=== PATIENT | male | born 1975 | race Two or more races ===

== ENCOUNTER 2025-06-19 09:34 | Outpatient (AMB) | payer OTHER, SELFPAY ==
--- OUTSIDE RECORDS SUMMARY | 2016-08-28 06:08 | XMS_ITS | Continuity of Care Document ---
Author Organization [facility] Address [address] [place] [address] Phone Care Team Providers Care Drip Box Tender Name Role Phone Maritza BATRES, Anika Unavailable Unavailable Allergies, Adverse Reactions, Alerts Substance Reaction Status Criticality Penicillins Hives/Skin Rash Active No Informati on Medications Medication Instructions Dosage Effective Dates (start - stop) Status Comments ibuprofen 800 mg tablet take 1 tablet by oral route 3 times every day with food 800 MG - Active Procedures Procedure Date PREV VISIT, EST, AGE 40-64 Diagnostic Evaluation With No Medical Ja C33 UNLISTED E&M SERVICE SPECIMEN HANDLING ROUTINE VENIPUNCTURE HEMOGLOBIN ASSAY THYROID STIM HORMONE MICROSCOPIC EXAM OF URINE ASSAY OF FREE THYROXINE HEPATIC FUNCTION PANEL COMPLETE CBC, AUTOMATED LIPID PANEL BASIC METABOLIC PANEL HIV-1/HIV-2, SINGLE ASSAY Urine Dipstick OFFICE/OUTPATIENT VISIT, NEW 30 MIN IMMUNIZATION ADMIN TDAP Vaccine 7 Yrs Thru 18 Yrs And 11 Mo s IM B16 Advance Directives Directive Yes / No Effective Date File Name No Information Encounters Encounter Description Practice Location Reason(s) For Visit Diagnoses Date Provider Providers Copied on Encounter [facility], [address], [place], [id number], [place] tel:[phone] [facility] No Information 3-201 7 Maritza Donaldson. [address] [place], [address], [place]. tel:[phone] PREV VISIT, EST, AGE 40-64 [facility], [address] [place] [address], [id number], [place] tel:[phone] [facility] CPE (chief complaint) Encounter for well adult exam without abnormal findingsPPD screening testExcessive cerumen in both ear canalsBMI 37.0-37.9, adultElevated blood pressure reading 7 [facility] SUPERVISOR [employer]ANGING Anika. [address] [place], [address], [place]. tel:[phone] Diagnostic Evaluation With No Medical [facility], [address] [place] [address], [id number], [place] tel:[phone] [facility] Alcohol abuse with intoxication, unspecified 7 [facility] [place]. [address] [place], [address]. tel:[phone] UNLISTED E&M SERVICE [facility], [address] [place] [address], [id number], [place] tel:[phone] [facility] Lab Draw (chief complaint) Encounter for preprocedural laboratory examination 6 Nurse Visit. [address] [place], [address], [place]. tel:[phone] OFFICE/OUTPA TIENT VISIT, NEW 30 MIN [facility], [address] [place] [address], [id number], [place] tel:[phone] [facility] genitail pain (chief complaint) Encounter for preprocedural laboratory examinationEstablis ventura care with new doctor, encounter forRoutine lab drawBMI 37.0-37.9, adultMuscle spasmAlcohol dependence with uncomplicated intoxicationLeft groin painElevated blood pressure reading 6 [facility] [employer] Anika. [address] [place], [address], [place]. tel:[phone] Family History Family Member Type Diagnosis Age At Onset Paternal grandmother Problem (finding) Diabetes mellit Paternal grandmother Problem (finding) Cancer, brain ( Cause Of ) Immunizations Vaccine Date Status Comments Tdap administered Source: [facility] unization Record Payers Payer name Insurance type Covered alliance party ID Authoriza tion(s) No Information Social History Type Description Quantity Date Captured Comments Sex Male Smoking Status No Information Sexual Orientation Straight or heterosexual Gender Identity Male Chief Complaint And Reason For Visit No Information Reason For Referral Reason For Referral No Information Plan Of Treatment Date Type Action Status Goal TB Screening (PPD test). Due on due Goal Complete Physical Exam. Due on due Goal TB Screening (PPD test). Due on due Goal Complete Physical Exam. Due on due Goal Mammogram Screening. Due on due Goal TB Screening (PPD test). Due on due Goal Mammogram Screening. Due on due Goal Complete Physical Exam. Due on due Goal TB Screening (PPD test). Due on due Goal Mammogram Screening. Due on due Goal Td vaccine. Due on 16 due Goal Complete Physical Exam. Due on due Referral Ordered: referred to [facility] (related to Alcohol dependence with uncomplicated intoxication) ordered History Of Present Illness Encounter Date Complaint History Of Prese nt Illness CPE 41 y.o male here for CPE and discuss labs done 07/13/17. Pt states recently he has been counting his calories intake, and very conscious about his diet. Pt has been walking his dog more these days, but not in the rain.Pt has already seen the COPPER [facility]ER, and states the session helped him.Overall, he states since last visit with me, his lifestyle has affected to better changes. Lab Draw genitail pain Pt here with com plaint of left groin pain x 2 wks. States when he has bowel movement, there is also pain and rectal tear with blood spotting.. Pt states he has been doing heavy lifting before the left groin pain occured. Denies urinary problems.Latisha present for male genital examPt is a binge drinker over the weekend 6-7 beers a sitting.Recent Hospitalizations: noneMedications: noneAllergies: PCNSHx: noneMHx: obesityFHx: Social Hx:: Denies smoking/current etoh drinker 6-7 beers sitting/hx of drug usingDevelopmental: Functional Status Date Functional Assessmen t No Information Instructions Date Instruction Additional Infor mation return wednesday for pp d reading by nurse Related to PPD screening test Pt advised to mainta in a low-fat, low salt, and low-cholesterol diet. Pt advised to eat small portions 4-5 times a dayAvoid exposure to tobacco smoke and/or polluted air. Pt advised to do cardio exercise daily for at least 30 mins. Related to BMI 37.0-37.9, adult Ear lavage to be done in office Related to Excessive cerumen in both ear canals Yearly CPE. Routine labs next ye ar. Related to Encounter for well adult exam without abnormal findings Pt advised to decrea se alcohol intake, and advised to stop drinking tapering down to stopping completely Related to Alcohol dependence with uncomplicated intoxication Decrease salt intake. Related to Elevated blood pressure reading return on wednesday to reassess pain. Will consider Pelvic US if pain persists. Related to Muscle spasm Pt advised to mainta in a low-fat, low salt, and low-cholesterol diet. Avoid exposure to tobacco smoke and/or polluted air. Pt advised to do cardio exercise daily for at least 30 mins. Related to BMI 37.0-37.9, adult Assessments Type Assessment Date No Information Patient Care Teams Name Effective Dates (start - stop) Status Members No Information
--- NOTE | 2025-06-19 09:41 | A.PHYSOV_ITS ---
Vital Signs 06/19/25 09:45 Height 5 ft 7 in Weight 200 lb BMI 31.3 Intake Visit Reasons: Left shoulder injection Intake Note: Patient is a 50 year old male here with left shoulder pain. Pain for 2 months. Tool And Equipment Rental Clerk Required: No Tool And Equipment Rental Clerk Services: Tool And Equipment Rental Clerk Offered & Declined Tool And Equipment Rental Clerk Name: Patient is here with Blank Allergies gabapentin Allergy (Unknown, Verified 06/19/25 09:42) Unknown HPI Comments Details: History of Present Illness The patient is a 50-year-old individual presenting for evaluation with shoulder pain. The shoulder pain began approximately two months ago without any specific injury, initially thought to be related to gym activities. An x-ray revealed calcific tendinitis, and the pain has progressively worsened over time. The pain initially started in the back and radiated around the shoulder, becoming more severe with activity and when sitting. The patient experiences increased pain with neck movement and when lifting the arm. He has a pain level today of 7/10. The patient has not undergone physical therapy but has been using anti- inflammatory medication, which initially provided relief but is now less effective. The patient has no history of diabetes and is allergic to penicillin. Pain Description - Onset: Approximately two months ago, without specific injury. - Quality: Worsening pain, initially thought to be related to gym activities. - Location: Started in the back, radiating around the shoulder. - Exacerbating factors: Activity, sitting, neck movement, and lifting the arm. - Relieving factors: Initial relief with anti-inflammatory medication, now less effective. Procedure: Left L5 TFESI 12/07/2022 80% reduction of his pain Left subacromial injection 06/19/2025 [facility] Surgical History History of back surgery Social History Alcohol intake: current Alcohol intake frequency: holidays/special occasions only Patient Tobacco Use Status: Current everyday Tobacco user Use of substances other than those prescribed or required for medical reasons: No Current occupational status: employed Review of Systems Narrative Review of Systems - Musculoskeletal: Reports shoulder pain exacerbated by movement and sitting. - Neurological: Reports neck pain with movement. Physical Exam Exam Exam: Physical Exam Cervical Spine: He is tender to the left upper trapezius and cervical paraspinal musculature. He has limited range of motion at end range with cervical motion particularly in lateral flexion and rotation to the left. Special Tests: Axial Compression test: Negative Spurlings test: Negative Lhermitte's sign is Negative Upper Extremities: Full range of motion bilateral upper extremities. 5/5 rotator cuff strength throughout. Positive Neer test. Negative empty can test. Full range of motion of his elbow wrist and hand. Equal x ray service engineer strength bilaterally. Neuro: Sensation: Intact to upper extremities bilateral to light touch Strength C5 (Elbow Flexion): 5/5 on the left and 5/5 on the right. C6 (Elbow Ext): 5/5 on the left and 5/5 on the right. C7 (Elbow Ext): 5/5 on the left and 5/5 on the right. C8 (Finger Flex): 5/5 on the left and 5/5 on the right. T1 (Finger Abd/Add): 5/5 on the left and 5/5 on the right. DTR: C5 (Biceps): Left 2 Right 2 C6 (Brachioradialis): Left 2 Right 2 C7 (Triceps): Left 2 Right 2 Crandall sign: Negative No pathologic clonus. No involuntary movement. Vital Signs: BMI result Body Mass Index 31.3 Office Procedures AMB Shoulder Injection AMB Shoulder Injection Procedure Details: Left Subacromial injection Procedure: The patient was educated about risks, co mplications and benefits including but not limited to increased serum glucose, infection, nerve damage, bleeding, tendon/ligament damage and pain. We agree with a subacromial injection is the next best step in the treatment plan. Verbal consent was obtained. Using aseptic technique, the skin was cleansed with Betadine. Ethyl chloride was used to desensitize the skin. Using a posterior approach, 40 mg of Kenalog and 3 mL 2% lidocaine were injected using a 25-gauge inch and a half needle into the subacromial space. The patient tolerated the procedure well without immediate complication. Postinjection instructions were given. Shoulder Injection - : Left All charges added?: Procedure code (CPT) selection complete Office Meds Kenalog 40 mg/mL suspension for injection Performing Provider: LOCO Alvares Performing Location: [facility] Administered by: LOCO Alvares on 06/19/25 13:56 Dose Route Admin Location Dispensed Lot Number Expiration Date [facility] [employer] 40 mg intra-articular 1 mL [id number] [employer] Total Dispensed Waste 1 mL 0 % lidocaine (PF) 20 mg/mL (2 %) injection solution Performing Provider: LOCO Alvares Performing Location: [facility] Administered by: LOCO Alvares on 06/19/25 13:56 Dose Route Admin Location Dispensed Lot Number Expiration Date [employer] 60 mg intra-articular 50 mL [id number] Total Dispensed Waste 50 mL 0 % Assessment & Plan Assessment & Plan (1) Calcific tendonitis of left shoulder: Code(s): M75.32 - Calcific tendinitis of left shoulder Category: Medical Plan Pain Management - Affect: Pain impacts daily activities, especially when sitting or lifting the arm. - Analgesia: Anti-inflammatory medication initially effective, now less so. - Adverse Effects: None reported from current medication. - Activities of Daily Living: Pain interferes with sitting and arm movement. - Aberrant Drug Related Behaviors: None reported. Plan Patient was informed and verbally consented to the use of an ambient scribe for clinic note documentation during this visit. 1. Calcific Tendinitis The patient has been diagnosed with calcific tendinitis, confirmed by x-ray, which is causing significant shoulder pain exacerbated by movement and sitting. Treatment options discussed include physical therapy, medication, and cortisone injections, with surgery as a last resort. A cortisone injection was administered during the visit, with the expectation of relief within a few days to a week. Recommend: Moist heat compresses for 15 minutes up to 5 times daily. 2. Neck Pain The patient reports neck pain, which may be related to a pinched nerve, contr ibuting to the shoulder pain. The management plan includes monitoring the pain and considering further evaluation if symptoms persist after the cortisone injection. We discussed the benefits of proper nutrition and exercise to maintain a healthy body weight to improve longevity and function. We also discussed the benefits of proper lifting techniques, core strengthening and proper posture. Thank you for allowing me to participate in the care of your patient. Orders: Orders AMB Shoulder Injection Today M75.32 - Calcific tendinitis of left shoulder Coding Level of Care Code Tele Est Pt Level 3 (01465) Diagnoses Calcific tendonitis of left shoulder M75.32 CPT Codes AMB Shoulder Injection - Hip/Bursa Injection - : Left ([id number])
[2025-06-19 09:45] VITALS: BMI 31.3
--- OUTSIDE RECORDS SUMMARY | 2025-06-19 11:06 | XMS_ITS | Encounter Summary ---
Author Organization [employer] Address [address] [place] [address] Care Team Providers Care Burning Machine Operator Name Role Phone Barry Medina MD Primary Care Provider [phone] Encounter Details Date Type Department Care Team ([facility] Contact Info) Description 05/14/2025 Results Follow-Up Gastroenterology - [address] [id number] Vinnie Baez MD [address] [place] [id number] Social History Tobacco Use Types Packs/Day Years Used Date Smoking Tobacco: Every Day Cigarettes Smokeless Tobacco: Never Alcohol Use Standard Drinks/Week Comments Yes 0 (1 standard drink = 0.6 oz pur e alcohol) Housing Instability Answer Date Recorde d Are you worried that in the next 2 months you may not have stable housing? No 02/21/2025 Food Access & Nutrition Answer Date Rec orded Do you have access to a vari ety of food including fruits and vegetables? No 02/21/2025 Access to Healthcare Answer Date Record ed Within the last 3 months, ho w many times did you visit the emergency department for your medical care? 0 02/21/2025 Health Literacy Answer Date Recorded How often do you need to hav e someone help you when you read instructions, pamphlets, or other written material from your doctor or pharmacy? Always 02/21/2025 Caregiver: How often do you need to have someone help you when you read instructions, pamphlets, or other written material from your doctor or pharmacy? Not on file 02/21/2025 Financial Risk Answer Date Recorded How hard is it for you to pa y for the very basics like food, housing, medical care, and air conditioning / heating? Somewhat hard 02/21/2025 Transportation Answer Date Recorded Has the lack of transportati on kept you from meetings, work, or from getting things needed for daily living? No Has the lack of transportati on kept you from medical appointments or from getting medications? No 02/21/2025 Social Isolation Answer Date Recorded How often do you feel lonely or isolated from th ose around you? Always 02/21/2025 Food Risk Answer Date Recorded Within the past 12 months we worried whether our food would run out before we got money to buy more. Often true 02/21/2025 Within the past 12 months th e food we bought just didn't last and we didn't have money to get more. Never true 02/21/2025 Dependent Care Answer Date Recorded Do you need help finding or paying for care for your loved ones. For example, child care center assistant director or elderly care for an older adult? No 02/21/2025 Education Answer Date Recorded Do you think completing more education or training, like finishing a GED, going to college, or learning a trade, would be helpful for you? No 02/21/2025 Employment and Income Answer Date Recor ded During the last four weeks, have you been actively looking for work? No 02/21/2025 Living Situation Answer Date Recorded What is your living situation? Unrecognized valu e 02/21/2025 Interpersonal Safety Answer Date Record ed Physical Abuse Unrecognized value 05/10/2025 Verbal Abuse Unrecognized value 05/10/2025 Sex and Gender Information Value Date Recorded Sex Assigned at Not on file Legal Sex Male 5:03 AM EST Gender Identity Not on file Sexual Orientation Not on file documented as of this encounter Plan of Treatment Not on file documented as of this encounter Visit Diagnoses Not on filedocumented in this encounter Additional Health Concerns Assessment Noted Time PHQ-9 Depression Total Score: 23 03/21/ 025 6:50 PM EDT documented as of this encounter Care Teams Burning Machine Operator Relationship Specialty Start Date End Date Barry Medina MD [address] [place] [phone] PCP - General Internal Medicine 05/30/24 documented as of this encounter
--- OUTSIDE RECORDS SUMMARY | 2025-06-19 11:06 | XMS_ITS | Clinical Summary ---
Author Organization [facility] [address] [place] [address] [place] [phone] Phone Care Team Providers Care Manager Story Name Role Phone Barry Medina MD Primary Care Provider [phone] Allergies Active Allergy Reactions Criticality Noted Date Comments Gabapentin Diarrhea,Nausea And Vomiting 022 Penicillin V Potassium Hives 01/20/2006 Medications amitriptyline (ELAVIL) 10 mg tablet Take 1-2 Tablets by mouth at bedtime for 180 days. 024 Active acetaminophen (TYLENOL 8 HOUR) 650 mg 8 hr tablet Take 1 tablet (650 mg total) by mouth every 8 (eight) hours if needed (pain). Do not crush, chew, or split. 60 tablet 1 024 Active fenofibrate (TRICOR) 145 mg tabletIndications :Hyperlipidemia, unspecified hyperlipidemia type Take 1 tablet (145 mg total) by mouth 1 (one) time each day. 90 tablet 1 025 Active FLUoxetine (PROzac) 20 mg capsuleIndication s:Anxiety TAKE 3 CAPSULES (60 MG TOTAL) BY MOUTH DAILY 90 capsule 4 025 Active sildenafiL (VIAGRA) 100 mg tabletIndications :Erectile dysfunction, unspecified erectile dysfunction type START WITH 1/2 TAB AND INCREASE TO 1 TABLET NEEDED 30-60 MINS BEFORE INTERCOURSE. MAX:100MG/DAY 6 tablet 4 025 Active hydrOXYzine HCL (ATARAX) 25 mg tablet TAKE 1 TABLET (25 MG TOTAL) BY MOUTH AT BEDTIME NEEDED FOR ANXIETY (INSOMNIA). 90 tablet 1 025 Active polyethylene glycol (Golytely) 236-22.74-6.74 -5.86 gram solution Take 4L by mouth once for one dose. May substitue any PEG. Starting at 2PM the day before your procedure drink 1 8oz glasses at your own pace until you complete half of the gallon. Finish 2nd half of the gallon at 8PM. 4000 mL 025 Active bisacodyL (DULCOLAX) 5 mg EC tablet Take 2 tablets by mouth right before beginning bowel prep. See instructions provided by the office 2 tablet Active cholecalciferol (VITAMIN D-3) 50 mcg (2,000 unit) tablet Take 1 tablet (2,000 Units total) by mouth 1 (one) time each day. 90 tablet 1 025 Active ibuprofen (ADVIL,MOTRIN) 800 mg tablet Take 1 tablet (800 mg total) by mouth every 8 (eight) hours if needed (pain). 60 tablet 1 025 Active pregabalin (LYRICA) 150 mg capsule Take 1 capsule (150 mg total) by mouth 1 (one) time each day. Max Daily Amount: 150 mg Active cyclobenzaprine (FLEXERIL) 5 mg tabletIndications :Acute pain of left shoulder Take 1 tablet (5 mg total) by mouth 3 (three) times a day if needed for muscle spasms. 30 tablet 025 Active diclofenac (VOLTAREN) 75 mg EC tabletIndications :Acute pain of left shoulder TAKE 1 TABLET TWICE A DAY FOR 14 DAYS BY MOUTH DO NOT CRUSH, CHEW OR SPLIT 28 tablet 025 Active diclofenac (VOLTAREN) 75 mg EC tabletIndications :Acute pain of left shoulder Take 1 tablet (75 mg total) by mouth 2 (two) times a day for 14 days. Do not crush, chew, or split. 28 tablet 025 2024 Discontinued cyclobenzaprine (FLEXERIL) 5 mg tabletIndications :Acute pain of left shoulder Take 1 tablet (5 mg total) by mouth 3 (three) times a day if needed for muscle spasms. 30 tablet 025 11/11/ 2025 Discontinued(R eorder) Active Problems Problem Noted Date Diagnosed Date Prediabetes 05/31/2024 Hyperlipidemia 04/30/2023 Anxiety 08/22/2020 Back pain with radiation 06/10/2015 NAVDEEP (obstructive sleep apnea) 03/08/2012 Overview (04/28/2024): [facility] Polysomnogram: Date 03/04/2012; Wt 211#; BMI 33; SE 88%; SM 88%; REM 24%; RDI 19 (AHI 5), REM (RDI 11 - AHI 7), Central apneas 4; Obstructive apneas 2; Mixed apneas 0; hypopneas 31; RERAs 95; average oxygen saturation 994% (lowest 88% - without saturations <88% for 5% or more of study); PLMs 25. [facility] Polysomnogram treatment study. Date 04/06/2012. Wt 204#; BMI 31; SE 88 % SM 88 %; spent 29 % of the study in REM. On CPAP @ 7; RDI 4.4 (AHI 3), Central apneas 17; Obstructive apneas 1; Mixed apneas 0; hypopneas 2; RERAs 10; and, average oxygen saturation was 97%. For the entire study, PLMs ~11. - Obstructive Sleep Apnea - mild; mostly hypopneas with RERAs; without sleep related hypoventilation by 2011 polysomnogram. Encounters Date Type Department Care Team Description 05/16/2025 Results Follow-Up Adult Medicine [address] [phone] Laura Caraballo NP 05/15/2025 3:46 PM EDT - 05/15/2025 11:59 PM EDT Hospital Encounter [address] [phone] Acute pain of left shoulder Discharge Disposition: Home or Self Care 05/15/2025 3:30 PM EDT Office Visit Adult Medicine [address] [phone] Laura Caraballo NP Acute pain of left shoulder (Primary Dx) 05/14/2025 Results Follow-Up Gastroenterology - [address] [facility] [address] [place] [phone] Vinnie Baez MD 05/10/2025 7:29 AM EDT Anesthesia Event [facility] Endoscopy [address] [place] [phone] Martin Madden MD 05/10/2025 6:36 AM EDT - 05/10/2025 11:59 PM EDT Hospital Encounter [facility] Endoscopy [address] [place] [phone] Vinnie Baez MD Saliga, Jesse L, MD Steele, Matthew G, CRNA Colon cancer screening Discharge Disposition: Home or Self Care 05/08/2025 Telephone Adult Medicine [address] [phone] Barry Medina MD 05/08/2025 Results Follow-Up Adult [address] [phone] Barry Medina MD 03/28/2025 5:00 PM EDT Office Visit Adult [address] [phone] Martin Hadley PA Anxiety (Primary Dx); Insomnia, unspecified type; Depression, unspecified depression type from Last 3 Months Immunizations Immunization Administration Dates Next Due Pfizer (ages 12 & older) Bivalent, COVID-19 04/26 Tdap Tetanus diptheria acell ular pertussis (Boostrix; Adacel) 7yo and older 04/28/2023,09/29/2011 Zoster recombinant (Shingrix) 19yo and older Surgical History Surgery Date Site/Laterality Comments OTHER SURGICAL HISTORY PROCEDURE: ---- OTHER ----; COMMENT: lumbar spine surgery APPENDECTOMY PROCEDURE: HISTORICAL APPENDECTOMY Medical History Medical History Date Comments Hyperlipidemia Family History Medical History Relation Name Comments Breast cancer Other paternal aunt Other cancer Paternal Grandmother Relation Name Status Comments Brother Alive DM Father leukemia Other Paternal Grandmother Sister 1 Alive Sister 2 Alive Sister 3 Alive Social History Tobacco Use Types Packs/Day Years Used Date Smoking Tobacco: Every Day Cigarettes Smokeless Tobacco: Never Tobacco Cessation:Ready to Q uit: No; Counseling Given: Not Answered Alcohol Use Standard Drinks/Week Comments Yes 0 [...] for your loved ones. For example, child center assistant or elderly care for an older adult? [...] on file Sexual Orientation Not on file Obstetrics History Last Filed Vital Signs Vital Sign Reading Time Taken Comments Blood Pressure 117/67 05/15/2025 3:09 PM EDT Pulse 69 05/15/2025 3:09 PM EDT Temperature 36.9 C (98.5 F) 05/15/2025 3:09 PM EDT Respiratory Rate 15 05/15/2025 3:09 PM EDT Oxygen Saturation 95% 05/15/2025 3:09 PM EDT Inhaled Oxygen Concentration - - Weight 95.1 kg (209 lb 11.2 oz) 05/15/2025 3:09 PM EDT Height 170.2 cm (5' 7 ) 05/15/2025 3:09 PM EDT Body Mass Index 32.84 05/15/2025 3:09 PM EDT Plan of Treatment Health Maintenance Due Date Last Done Comments Hepatitis B Vaccines (1 of 3 - 19+ 3-dose series) 1993 Pneumococcal Vaccine: 50+ Years (1 of 2 - PCV) 1993 COVID-19 Vaccine ( - season) 2025 05/20/2022, 06/12/2021, 12/04/2020, Additional history exists Zoster Vaccines (2 of 2) 06/18/2025 04/23/2025 Social Influencers of Health Screening 02/21/2026 02/21/2025 Cholesterol Screening (Lipid Panel) 05/04/2030 05/04/2025, 06/19/2024, 11/30/2023, Additional history exists Colorectal Cancer Screening: Colonoscopy 05/10/2030 05/10/2025 DTaP,Tdap,and Td Vaccines (3 - Td or Tdap) 04/28/2033 04/28/2023, 09/29/2011 RSV Immunization Adult Patients (1 - 1-dose 75+ series) 2049 Depression Screening Completed 03/21/2025 HIV Screening Completed 05/04/2025 Hepatitis C Screening Completed 05/04/2025 Influenza Vaccine Completed 05/24/2025 HIB Vaccines Aged Out No longer eligi ble based on patient's age to complete this topic HPV Vaccines Aged Out No longer eligi ble based on patient's age to complete this topic Hepatitis A Vaccines Aged Out No long er eligible based on patient's age to complete this topic IPV Vaccines Aged Out No longer eligi ble based on patient's age to complete this topic MMR Vaccines Aged Out No longer eligi ble based on patient's age to complete this topic Meningococcal ACWY Vaccine Aged Out N o longer eligible based on patient's age to complete this topic Meningococcal B Vaccine Aged Out No l onger eligible based on patient's age to complete this topic RSV Immunization Patients Under 20 months Aged Out No longer eligible based on patient's age to complete this topic Varicella Vaccines Aged Out No longer eligible based on patient's age to complete this topic Procedures Procedure Name Priority Date/Time Associated Diagnosis Comments XR SHOULDER 2+ VIEWS LEFT Routine 05/15/2025 3:53 PM EDT Acute pain of left shoulder COLONOSCOPY Routine 05/10/2025 7:46 AM EDT Colon cancer screening TISSUE EXAM Routine 05/10/2025 7:44 AM EDT Colon cancer screening CBC WITH AUTO DIFFERENTIAL Routine 05/04/2025 9:06 AM EDT Encounter for annual physical exam HEPATITIS C ANTIBODY Routine 05/04/2025 9:06 AM EDT Routine general medical examination at a [facility] care facility CBC AND DIFFERENTIAL Routine 05/04/2025 9:06 AM EDT Encounter for annual physical exam COMPREHENSIVE METABOLIC PANEL Routine 05/04/2025 9:06 AM EDT Encounter for annual physical exam PROSTATE SPECIFIC ANTIGEN SCREEN Routine 05/04/2025 9:06 AM EDT Encounter for annual physical exam Erectile dysfunction, unspecified erectile dysfunction type LIPID PANEL WITH REFLEX TO DIRECT LDL Routine 05/04/2025 9:06 AM EDT Encounter for annual physical exam Hyperlipidemia, unspecified hyperlipidemia type THYROID STIMULATING HORMONE WITH REFLEX TO FREE T4 AND FREE T3 Routine 05/04/2025 9:06 AM EDT Encounter for annual physical exam HEMOGLOBIN A1C Routine 05/04/2025 9:06 AM EDT Encounter for annual physical exam VITAMIN D 25 HYDROXY Routine 05/04/2025 9:06 AM EDT Encounter for annual physical exam HIV 1, 2 ANTIBODY, P24 ANTIGEN WITH REFLEX TO DIFFERENTIATION Routine 05/04/2025 9:06 AM EDT Encounter for annual physical exam from Last 3 Months Results * XR Shoulder 2+ Views Left (05/15/2025 3:53 PM EDT) Anatomical Region Laterality Modality Upper Extremities, Shoulder Left Radi ographic Imaging 05/15/2025 7:12 PM EDT Impressions 05/15/2025 7:13 PM EDT No acute fracture or dislocation of the left shoulder. Calcific bursitis -------- FINAL REPORT -------- Dictated By: Munir Do Dictated Date: 05/15/2025 19:12 ET Assigned Physician: Munir Do Reviewed and Electronically Signed By: Munir Do Signed Date: 05/15/2025 19:13 ET Workstation ID: [id number] Transcribed By: Self Edit Transcribed Date: 05/15/2025 19:12 ET Narrative 05/15/2025 7:13 PM EDT HISTORY: pain TECHNIQUE: 4 views of the left shoulder COMPARISON: None FINDINGS: No acute fracture or dislocation is seen. There is no evidence of malalignment. The AC joint is intact. Rounded calcification adjacent to the humeral head. Procedure Note Munir Do MD - 05/15/2025 HISTORY: pain TECHNIQUE: 4 views of the left shoulder COMPARISON: None FINDINGS: No acute fracture or dislocation is seen. There is no evidence ofmalalignment. The AC joint is intact. Rounded calcification adjacent tothe humeral head. IMPRESSION: No acute fracture or dislocation of the left shoulder. Calcific bursitis -------- FINAL REPORT -------- Dictated By: Munir Do Dictated Date: 05/15/2025 19:12 ET Assigned Physician: Munir Do Reviewed and Electronically Signed By: Munir Do Signed Date: 05/15/2025 19:13 ET Workstation ID: [id number] Transcribed By: Self Edit Transcribed Date: 05/15/2025 19:12 ET us Laura Caraballo BICYCLE SUBASSEMBLER IMG XR PROCEDURES Final Resul t * COLONOSCOPY Anesthesia - MAC; [facility] ENDOSCOPY (05/10/2025 7:46 AM EDT) Anatomical Region Laterality Modality Endoscopy 05/10/2025 7:32 AM EDT Impressions 05/10/2025 7:50 AM EDT - One 6 mm polyp at the splenic flexure, removed with a cold snare. Resected and retrieved. - The examination was otherwise normal on direct and retroflexion views. Recommendation: - Await pathology results. - Repeat colonoscopy for surveillance based on pathology results. Narrative 05/10/2025 7:50 AM EDT [facility] GI Patient Name: Brian Figueroa Procedure Date: 05/10/2025 7:32 AM Date of : 1975 Age: 50 Room: ROOM 15 Gender: Male Note Status: Finalized Attending MD: Vinnie Baez MD, Procedure Date No Time: 05/10/2025 Procedure: Colonoscopy Indications: Screening for colorectal malignant neoplasm Providers: Vinnie Baez MD Referring MD: Vinnie Baez MD Medicines: Propofol per Anesthesia Complications: No immediate complications. Estimated Blood Loss: Estimated blood loss: none. Procedure: Pre-Anesthesia Assessment: - ASA Grade Assessment: II - A patient with mild systemic disease. After I obtained informed consent, the scope was passed under direct vision. Throughout the procedure, the patient's blood pressure, pulse, and oxygen saturations were monitored continuously.The Colonoscope was introduced through the anus and advanced to the cecum, identified by appendiceal orifice and ileocecal valve. The colonoscopy was performed without difficulty. The patient tolerated the procedure well. The quality of the bowel preparation was good. Findings: The perianal and digital rectal examinations were normal. A 6 mm polyp was found in the splenic flexure. The polyp was sessile. The polyp was removed with a cold snare. Resection and retrieval were complete. The exam was otherwise without abnormality on direct and retroflexion views. Procedure Code(s): --- Professional --- 06941, Colonoscopy, flexible; with removal of tumor(s), polyp(s), or other lesion(s) by snare technique Diagnosis Code(s): --- Professional --- Z12.11, Encounter for screening for malignant neoplasm of colon D12.3, Benign neoplasm of transverse colon (hepatic flexure or splenic flexure) CPT copyright 2020 [employer]. All rights reserved. The codes documented in this report are preliminary and upon lock maintenance supervisor review may be revised to meet current compliance requirements. Vinnie Baez MD 05/10/2025 7:50:24 AM This report has been signed electronically.Vinnie Baez MD Number of Addenda: 0 Note Initiated On: 05/10/2025 7:32 AM Scope In: Scope Out: Endoscopy Department at [facility] - [address] [place] [phone] Procedure Note Vinnie Baez MD - 05/10/2025 [facility] GI Patient Name: Brian Figueroa Procedure Date: 05/10/2025 7:32 AM Date of : 1975 Age: 50 Room: ROOM 15 Gender: Male Note Status: Finalized Attending MD: Vinnie Baez MD, Procedure Date No Time: 05/10/2025 Procedure: Colonoscopy Indications: Screening for colorectal malignant neoplasm Providers: Vinnie Baez MD Referring MD: Vinnie Baez MD Medicines: Propofol per Anesthesia Complications: No immediate complications. Estimated Blood Loss: Estimated blood loss: none. Procedure: Pre-Anesthesia Assessment: - ASA Grade Assessment: II - A patient with mild systemic disease. After I obtained informed consent, the scope was passed under direct vision. Throughout theprocedure, the patient's blood pressure, pulse, and oxygen saturations were monitored continuously.The Colonoscope was introduced through the anus and advanced to the cecum, identified by appendiceal orifice and ileocecal valve. The colonoscopy was performed without difficulty. The patient tolerated the procedure well. The quality of the bowel preparation was good. Findings: The perianal and digital rectal examinations were normal. A 6 mm polyp was found in the splenic flexure. The polyp was sessile. The polyp was removed with acold snare. Resection and retrieval were complete. The exam was otherwise without abnormality ondirect and retroflexion views. Procedure Code(s): --- Professional --- 00425, Colonoscopy, flexible; with removal of tumor(s), polyp(s), or other lesion(s) by snare technique Diagnosis Code(s): --- Professional --- Z12.11, Encounter for screening for malignantneoplasm of colon D12.3, Benign neoplasm of transverse colon (hepatic flexure or splenic flexure) CPT copyright 2020 [employer]. All rights reserved. The codes documented in this report are preliminary and upon lock maintenance supervisor reviewmay be revised to meet current compliance requirements. Vinnie Baez MD 05/10/2025 7:50:24 AM This report has been signed electronically.Vinnie Baez MD Number of Addenda: 0 Note Initiated On: 05/10/2025 7:32 AM Scope In: Scope Out: Endoscopy Department at [facility] - [address] [place] [phone] IMPRESSION: - One 6 mm polyp at the splenic flexure, removed with a cold snare. Resected and retrieved. - The examination was otherwise normal on directand retroflexion views. Recommendation: - Await pathology results. - Repeat colonoscopy for surveillance based on pathology results. us Vinnie Baez MD GI~PROCEDURE ORDERABLES Fin al Result * Tissue exam (05/10/2025 7:44 AM EDT) Final Diagnosis A. Large intestine, Splenic flexure, polyp x1: - No colonic tissue present for evaluation. - Vegetable material. Note: The specimen did not survive tissue processing. 05/11/2025 9:43 AM EDT [facility] at 0943 EDT Gross Description A. Large intestine, Splenic flexure, polyp x1: Labeled polyp x 1, splenic flex . Received in formalin is a 0.2 x 0.2 x 0.1 cm card-white mucosal tissue fragment admixed with organic material, that is wrapped in paper and submitted in toto in one cassette, one piece, multiple levels. KR 05/11/2025 9:43 AM EDT [facility] Disclaimer Unless otherwise specified, all tissue is 10% NB formalin fixed and paraffin embedded. 05/11/2025 9:43 AM EDT [facility] Tissue Structure of left colic flexure / Unknown 05/10/2025 7:44 AM EDT 05/10/2025 9:00 AM EDT us Vinnie Baez MD LAB PATHOLOGY ORDERABLES Fi nal Result [facility] [address] [place] [address], * Prostate specific antigen screen (05/04/2025 9:06 AM EDT) PSA 0.53 0.00 - 4.00 ng/mL LAB CHEMISTRY METHOD 05/04/2025 6:42 PM EDT [facility] Blood Venous blood specimen / Unknown Venipuncture / Unknown 05/04/2025 9:06 AM EDT 05/04/2025 9:06 AM EDT Narrative [facility] - 05/04/2025 6:42 PM EDT The Siemens [employer] Chemiluminescent Immunoassay is used. Results obtained with different assay methods or kits cannot be used interchangeably. Results cannot be interpreted as absolute evidence of the presence or absence of malignant disease. us Laura Caraballo BICYCLE SUBASSEMBLER LAB BLOOD ORDERABLES Final Re sult Performing Organization Address City/[facility]/ZIP Co de Phone Number [facility] [address] [place] [address], [place] [phone] * Hepatitis C antibody (05/04/2025 9:06 AM EDT) Hepatitis C Antibody Negative Negative LAB CHEMISTRY METHOD 05/04/2025 2:26 PM EDT [facility] Blood Venous blood specimen / Unknown Venipuncture / Unknown 05/04/2025 9:06 AM EDT 05/04/2025 9:06 AM EDT us Laura Caraballo BICYCLE SUBASSEMBLER LAB BLOOD ORDERABLES Final Re sult Performing Organization Address [facility] de Phone Number [facility] [address] [place] [address], [place] [phone] * HIV 1,2 antibody, p24 antigen with reflex to differentiation (05/04/2025 9:06 AM EDT) [facility] HIV Combo AB/AG Negative Negative LAB CHEMISTRY METHOD 05/04/2025 2:27 PM EDT [facility] Blood Venous blood specimen / Unknown Venipuncture / Unknown 05/04/2025 9:06 AM EDT 05/04/2025 9:06 AM EDT Narrative [facility] - 05/04/2025 2:27 PM EDT This assay is a 4th generation assay allowing for earlier detection of HIV infection by detecting the presence of the HIV-1 p24 antigen as well as the traditional antibodies to HIV type 1 (including group O) and type 2. Use of a 4th generation assay is the current CDC recommendation for HIV screening. us Laura Caraballo BICYCLE SUBASSEMBLER LAB BLOOD ORDERABLES Final Re sult Performing Organization Address City/[facility]/ZIP Co de Phone Number [facility] [address] [place] [address], [place] [phone] * Thyroid stimulating hormone with reflex to free t4 and free t3 (05/04/2025 9:06 AM EDT) [facility] TSH 1.12 0.40 - 4.00 mcIU/mL LAB CHEMISTRY METHOD 05/04/2025 1:47 PM EDT [facility] Blood Venous blood specimen / Unknown Venipuncture / Unknown 05/04/2025 9:06 AM EDT 05/04/2025 9:06 AM EDT Laura Caraballo BICYCLE SUBASSEMBLER LAB BLOOD ORDERABLES Final Re sult [facility] [address] [place] [address], [place] [phone] * (ABNORMAL) Lipid panel with reflex to direct LDL (05/04/2025 9:06 AM EDT) [facility] Cholesterol 208(H) 0 - 200 mg/dL LAB CHEMISTRY METHOD 05/04/2025 1:10 PM EDT [facility] Triglycerides 172(H) 0 - 150 mg/dL LAB CHEMISTRY METHOD 05/04/2025 1:10 PM [facility] HDL 37(L) >=40 mg/dL LAB CHEMISTRY METHOD 05/04/2025 1:10 PM EDT [facility] LDL Calculated 137(H) 0 - 100 mg/dL LAB CHEMISTRY METHOD 05/04/2025 1:10 PM EDT [facility] Comment:Estimated LDL Calcul ated using equation: Total cholesterol - HDL cholesterol - (Triglycerides/5) VLDL Cholesterol Sonido 34.4 mg/dL LAB CHEMISTRY METHOD 05/04/2025 1:10 PM EDT [facility] Non HDL Chol. (LDL+VLDL) 171(H) <145 mg/dL LAB CHE[facility]STRY METHOD [facility] Chol/HDL Ratio 5.6(H) 0.0 - 4.4 LAB CHEMISTRY METHOD 05/04/2025 1:10 PM [facility] Blood Venous blood specimen / Unknown Venipuncture / Unknown 05/04/2025 9:06 AM EDT 05/04/2025 9:06 AM EDT us Laura Caraballo BICYCLE SUBASSEMBLER LAB BLOOD ORDERABLES Final Re sult [facility] [address] [place] [address], * (ABNORMAL) CBC auto differential (05/04/2025 9:06 AM EDT) WBC 7.4 4.8 - 10.8 K/mcL LAB HEMETOLOGY METHOD 05/04/2025 10:20 AM [facility] RBC 5.40 4.50 - 5.50 M/mcL LAB HEMETOLOGY METHOD 05/04/2025 10:20 AM [facility] Hemoglobin 16.1 13.5 - 17.5 g/dL LAB HEMETOLOGY METHOD 05/04/2025 10:20 AM [facility] Hematocrit 48.3 42.0 - 54.0 % LAB HEMETOLOGY METHOD 05/04/2025 10:20 AM [facility] MCV 90.3 79.0 - 98.0 FL LAB HEMETOLOGY METHOD 05/04/2025 10:20 AM [facility] MCH 30.1 27.0 - 32.0 pcg LAB HEMETOLOGY METHOD 05/04/2025 10:20 AM [facility] MCHC 33.3 32.0 - 37.0 g/dL LAB HEMETOLOGY METHOD 05/04/2025 10:20 AM [facility] RDW 13.2 11.0 - 15.0 % LAB HEMETOLOGY METHOD 05/04/2025 10:20 AM [facility] Platelets 211 130 - 400 K/mcL LAB HEMETOLOGY METHOD 05/04/2025 10:20 AM [facility] MPV 11.2(H) 7.0 - 11.0 FL LAB HEMETOLOGY METHOD 05/04/2025 10:20 AM [facility] NRBC 0.0 <1.0 % LAB HEMETOLOGY METHOD 05/04/2025 10:20 AM [facility] NRBC Absolute 0.00 <0.10 K/mcL LAB HEMETOLOGY METHOD 05/04/2025 10:20 AM [facility] Neutrophils Relative 51.7 % LAB HEMETOLOGY METHOD 05/04/2025 10:20 AM [facility] Lymphocytes Relative 33.3 % LAB HEMETOLOGY METHOD 05/04/2025 10:20 AM [facility] Monocytes Relative 10.0 % LAB HEMETOLOGY METHOD 05/04/2025 10:20 AM [facility] Eosinophils Relative 3.5 % LAB HEMETOLOGY METHOD 05/04/2025 10:20 AM [facility] Basophils Relative 0.8 % LAB HEMETOLOGY METHOD 05/04/2025 10:20 AM [facility] Immature Granulocytes Relative 0.7 % LAB HEMETOLOGY METHOD 05/04/2025 10:20 AM [facility] Neutrophils Absolute 3.82 1.50 - 7.00 K/mcL LAB HEMETOLOGY METHOD 05/04/2025 10:20 AM [facility] Lymphocytes Absolute 2.46 1.00 - 5.00 K/mcL LAB HEMETOLOGY METHOD 05/04/2025 10:20 AM [facility] Monocytes Absolute 0.74 0.20 - 1.00 K/mcL LAB HEMETOLOGY METHOD 05/04/2025 10:20 AM EDT [facility] Eosinophils Absolute 0.26 0.00 - 0.50 K/[facility] LAB HEMETOLOGY METHOD 05/04/2025 10:20 AM EDT [facility] Basophils Absolute 0.06 0.00 - 0.20 K/[facility] LAB HEMETOLOGY METHOD 05/04/2025 10:20 AM EDT [facility] Immature Granulocytes Absolute 0.05(H) 0.00 - 0.03 K/[facility] LAB HEMETOLOGY METHOD 05/04/2025 10:20 AM EDT [facility] Blood Venous blood specimen / Unknown Venipuncture / Unknown 05/04/2025 9:06 AM EDT 05/04/2025 9:06 AM EDT us Laura Caraballo [employer] LAB BLOOD ORDERABLES Final Re sult Performing Organization Address City/[facility]/ZIP Co de Phone Number [facility] [address] [place] [address], [place] [phone] * (ABNORMAL) Vitamin D 25 hydroxy (05/04/2025 9:06 AM EDT) Vit D, 25-Hydroxy 22.1(L) 30.0 - 80.0 ng/mL LAB CHEMISTRY METHOD 05/04/2025 1:46 PM EDT [facility] Blood Venous blood specimen / Unknown Venipuncture / Unknown 05/04/2025 9:06 AM EDT 05/04/2025 9:06 AM EDT us Laura Caraballo B[employer] LAB BLOOD ORDERABLES Final Re sult Performing Organization Address City/[facility]/ZIP Co de Phone Number [facility] [address] [place] [address], [place] [phone] * Hemoglobin A1c (05/04/2025 9:06 AM EDT) Pathologist [facility] Hemoglobin A1C 5.8 <6.5 % LAB CHEMISTRY METHOD 05/04/2025 1:19 PM [facility] Mean Bld Glu Estim. 120 mg/dL LAB CHEMISTRY METHOD 05/04/2025 1:19 PM [facility] Blood Venous blood specimen / Unknown Venipuncture / Unknown 05/04/2025 9:06 AM EDT 05/04/2025 9:06 AM EDT us Laura Caraballo [employer] LAB BLOOD ORDERABLES Final Re sult [facility] [address] [place] [address], [place] [phone] * Comprehensive metabolic panel (05/04/2025 9:06 AM EDT) [facility] Sodium 138 133 - 145 mmol/L LAB CHEMISTRY METHOD 05/04/2025 1:10 PM [facility] Potassium 4.3 3.5 - 5.5 mmol/L LAB CHEMISTRY METHOD 05/04/2025 1:10 PM [facility] Chloride 105 96 - 110 mmol/L LAB CHEMISTRY METHOD 05/04/2025 1:10 PM [facility] CO2 25 21 - 32 mmol/L LAB CHEMISTRY METHOD 05/04/2025 1:10 PM [facility] Anion Gap 8 3 - 11 LAB CHEMISTRY METHOD 05/04/2025 1:10 PM [facility] Glucose 92 70 - 100 mg/dL LAB CHEMISTRY METHOD 05/04/2025 1:10 PM [facility] BUN 18 5 - 25 mg/dL LAB CHEMISTRY METHOD 05/04/2025 1:10 PM [facility] Creatinine 0.88 0.70 - 1.30 mg/dL LAB CHEMISTRY METHOD 05/04/2025 1:10 PM T [facility] eGFR 104 >=60 mL/min/1. 73m2 LAB CHEMISTRY METHOD 05/04/2025 1:10 PM [facility] Comment:Calculation based on the Chronic Kidney Disease Epidemiology Collaboration (CKD-EPI) equation refit without adjustment for race. BUN/Creatinine Ratio 20.5 LAB CHEMISTRY METHOD 05/04/2025 1:10 PM [facility] Calcium 9.5 8.5 - 10.5 mg/dL LAB CHEMISTRY METHOD 05/04/2025 1:10 PM [facility] AST (SGOT) 33 10 - 42 unit/L LAB CHEMISTRY METHOD 05/04/2025 1:10 PM [facility] ALT (SGPT) 48 10 - 60 unit/L LAB CHEMISTRY METHOD 05/04/2025 1:10 PM [facility] Alkaline Phosphatase 78 42 - 121 unit/L LAB CHEMISTRY METHOD 05/04/2025 1:10 PM [facility] Total Protein 7.6 6.0 - 8.0 g/dL LAB CHEMISTRY METHOD 05/04/2025 1:10 PM [facility] Albumin 4.2 3.2 - 5.0 g/dL LAB CHEMISTRY METHOD 05/04/2025 1:10 PM [facility] Total Bilirubin 0.6 0.0 - 1.4 mg/dL LAB CHEMISTRY METHOD 05/04/2025 1:10 PM [facility] Blood Venous blood specimen / Unknown Venipuncture / Unknown 05/04/2025 9:06 AM EDT 05/04/2025 9:06 AM EDT us Laura Caraballo [employer] LAB BLOOD ORDERABLES Final Re sult [facility] [address] [place] [address], [place] [phone] from Last 3 Months Insurance [facility] Care Teams Manager Story Relationship Specialty Start Date End Date Barry Medina MD [address] [place] [phone] PCP - General Internal Medicine 05/30/24
--- OUTSIDE RECORDS SUMMARY | 2025-06-19 11:06 | XMS_ITS | Encounter Summary ---
Author Organization [employer] Address [address] [place] [address] Care Team Providers Care Hvac Field Service Technician Name Role Phone Barry Medina MD Primary Care Provider [phone] Encounter Details Date Type Department Care Team (Late st Contact Info) Description 05/08/2025 Results Follow-Up Adult Medicine [address] [phone] Barry Medina MD [address] [place] [address] Social History Tobacco Use Types Packs/Day Years [...] your loved ones. 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 [...] documented as of this encounter Care Teams Hvac Field Service Technician Relationship Specialty Start Date End Date Barry Medina MD [address] [place] [phone] PCP - General Internal Medicine 05/30/24 documented as of this encounter
== END 2025-06-19 10:27 | disposition home or self-care (01) ==
LOC: HO.HPHYS 09:35
PROVIDERS: Visit Provider Physician Assistant
DX: M75.32 Calcific tendinitis of left shoulder (principal)
CPT/HCPCS: 20610; 99213

== ENCOUNTER → 2025-06-19 09:34 | Outpatient (BNVA) | payer OTHER, SELFPAY | PROVIDERS: Visit Provider Physician Assistant | DX: M75.32 Calcific tendinitis of left shoulder (principal) | CPT/HCPCS: 20610; J2003; J3301 ==